=== PATIENT | male | born 1940 | race Caucasian/White ===

== ENCOUNTER → 2018-02-21 | Outpatient (CLI) | payer MEDICARE ==
[~2018-02-21] MED LIST: IRON18TA PO; LORT5TAB PO; REST15CA PO; SENN5UDC PO; STOO100C PO; WARF7.5 PO
--- NOTE | 2018-02-21 09:58 | RSPPFT ---
DATE OF PROCEDURE: 02/21/18 COMMENTS: VOLUMES DYNAMIC: FVC and FEV1 normal. STATIC: FRC, RV and TLC normal. FLOWS: FEV1% and FEF 25-75 normal. DIFFUSION: Normal. FLOW VOLUME LOOP: Normal configuration. IMPRESSION: Normal pulmonary functions without significant obstruction or restriction. Diffusion capacity is also normal.
== END ==
LOC: HRSP 07:46
PROVIDERS: ATTEND Family Medicine Geriatric Medicine
DX: R06.2 Wheezing (principal); R06.89 Other abnormalities of breathing
CPT/HCPCS: 94010; 94726; 94729